=== PATIENT | male | born 1975 | race Caucasian/White ===

== ENCOUNTER 2017-08-07 20:40 | Inpatient (IN) | payer MEDICAID ==
--- NOTE | 2017-08-07 21:38 | ED Physician Chart ---
ED Chief Complaint/HPI - Patient Information Date Seen:: 08/07/17 Time Seen:: 21:00 Chief Complaint:: DISTENDED ABDOMEN History of Present Illness:: THIS IS A CHRONICALLY ILL CEREBRAL PALSY 42 YO WAS SENT FROM THE PRISON FOR AN EVALUATIO OF HIS DISTENDED ABDOMEN. HE HAS BEEN VOMITING INTERMITTENTLY. Allergies:: Allergies Allergy/AdvReac Type Severity Reaction Status Date / Time No Known Allergies Allergy Verified 08/07/17 21:20 Vitals:: Vital Signs - 8 hr 08/07/17 20:45 Temp 98.2 F HR 109 RR 20 BP 126/78 O2 Sat % 95 Historian:: Patient, Medical Records Review:: Nurse's Note Reviewed, Old Chart Reviewed, Transfer documents Reviewed ED Review of Systems - Review of Systems General/Constitutional: No fever, No chills, No weight loss, No weakness, No diaphoresis, No edema, No loss of appetite Skin: No skin lesions, No rash, No bruising Head: No headache, No light-headedness Eyes: No loss of vision, No pain, No diplopia ENT: No earache, No nasal drainage, No sore throat, No tinnitus Neck: No neck pain, No swelling, No thyromegaly, No stiffness, No mass noted Cardio Vascular: No chest pain, No palpitations, No PND, No orthopnea, No edema Pulmonary: No SOB, No cough, No sputum, No wheezing GI: Nausea, Vomiting, No diarrhea, Pain, No melena, No hematochezia, No constipation, No hematemesis G/U: No dysuria, No frequency, No hematuria Musculoskeletal: No bone or joint pain, No back pain, No muscle pain Endocrine: No polyuria, No polydipsia Psychiatric: No prior psych history, No depression, No anxiety, No suicidal ideation Hematopoietic: No bruising, No lymphadenopathy Allergic/Immuno: No urticaria, No angioedema Neurological: No syncope, No focal symptoms, No weakness, No paresthesia, No headache, No seizure, No dizziness, No confusion, No vertigo ED Past Medical History - Past Medical History Obtainable: Yes Past Medical History: PUD/GERD, Dementia Family History: None Social History: Non Smoker, No Alcohol, No Drug Use, Care Facility Surgical History: None Psychiatricy History: Schizophrenia Family Medical History - Family Member Mother History Unknown: Yes Ethnicity: Living Status: Hx Family Cancer: No Hx Family Coronary Artery Disease: No Hx Family Congestive Heart Failure: No Hx Family Hypertension: No Hx Family Stroke: No Hx Family Diabetes: Yes Hx Family Seizures: No Hx Family Dementia: No Hx Family AIDS: No Hx Family HIV: No Hx Family COPD: Yes (asthma) Hx Family Hepatitis: No Hx Family Psychiatric Problems: No Hx Family Tuberculosis: No ED Physical Exam - Physical Examination General/Constitutional: Awake, Well-developed, well-nourished, Alert, No distress, GCS 15, Non-toxic appearing, Ambulatory Head: Atraumatic Eyes: Lids, conjuctiva normal, PERRL, EOMI Skin: Nl inspection, No rash, No skin lesions, No ecchymosis, Well hydrated, No lymphadenopathy ENMT: External ears, nose nl, Nasal exam nl, Lips, teeth, gums nl Neck: Nontender, Full ROM w/o pain, No JVD, No nuchal rigidity, No bruit, No mass, No stridor Respiratory: Nl effort/Exclusion, Clear to Auscultation, No Wheeze/Rhonchi/Rales Cardio Vascular: RRR, No murmur, gallop, rubs, NL S1 S2 GI: No organomegaly, No hernia, Normal BS's, No mass/bruits, No McBurney tenderness Other GI comments:: THE ABDOMEN IS DISTENDED AND MINIMALLY TENDER : No CVA tenderness Extremities: No tenderness or effusion, Full ROM, normal strength in all extremities, No edema, Normal digits & nails Neuro/Psych: Alert/oriented, DTR's symmetric, Normal sensory exam, Normal motor strength, Judgement/insight normal, Mood normal, Normal gait, No focal deficits Other Neuro/Psych comments:: RESIDUAL PARALYSIS SECONDARY TO HIS CP CONDITION. Misc: normal gait, Normal back, No paraspinal tenderness ED Labs/Radiology/EKG Results - Lab Results Results: Abnormal Lab Results 08/07/17 08/07/17 08/07/17 21:29 21:29 21:29 WBC 10.2 D RBC 4.56 Hgb 13.3 Hct 40.1 D MCV 87.9 MCH 29.1 MCHC Differential 33.1 RDW 13.6 Plt Count 186 D MPV 8.1 Neutrophils % 55.6 Lymphocytes % 28.1 Monocytes % 11.4 H Eosinophils % 4.9 Basophils % 0.0 PT 10.6 INR 1.02 PTT (Actin FS) 27.3 Sodium 135 L Potassium 3.6 Chloride 105 Carbon Dioxide 22.7 Anion Gap 10.9 BUN 16 Creatinine 0.6 L Est GFR ( Amer) > 60.0 Est GFR (Non-Af Amer) > 60.0 BUN/Creatinine Ratio 26.7 Glucose 112 H Calcium 9.6 Total Bilirubin 0.4 AST 19 ALT 21 Alkaline Phosphatase 41 Troponin I Total Protein 8.3 Albumin 4.3 Globulin 4.0 Albumin/Globulin Ratio 1.1 Triglycerides 137 Cholesterol 108 LDL Cholesterol Direct 74 L HDL Cholesterol 30 TSH Urine Source Urine Color Urine Clarity Urine pH Ur Specific [place] Urine Protein Urine Glucose (UA) Urine Ketones Urine Blood Urine Nitrate Urine Bilirubin Urine Urobilinogen Ur Leukocyte Esterase Urine RBC Urine WBC Ur Epithelial Cells Urine Bacteria 08/07/17 08/07/17 08/07/17 21:29 21:29 22:30 WBC RBC Hgb Hct MCV MCH MCHC Differential RDW Plt Count MPV Neutrophils % Lymphocytes % Monocytes % Eosinophils % Basophils % PT INR PTT (Actin FS) Sodium Potassium Chloride Carbon Dioxide Anion Gap BUN Creatinine Est GFR ( Amer) Est GFR (Non-Af Amer) BUN/Creatinine Ratio Glucose Calcium Total Bilirubin AST ALT Alkaline Phosphatase Troponin I 0.02 Total Protein Albumin Globulin Albumin/Globulin Ratio Triglycerides Cholesterol LDL Cholesterol Direct HDL Cholesterol TSH 6.90 H Urine Source CLEAN C Urine Color YELLOW Urine Clarity HAZY Urine pH 6.0 Ur Specific [place] 1.020 Urine Protein TRACE Urine Glucose (UA) NEGATIVE Urine Ketones TRACE Urine Blood TRACE Urine Nitrate NEGATIVE Urine Bilirubin NEGATIVE Urine Urobilinogen 0.2 Ur Leukocyte Esterase MODERATE H Urine RBC 2-5 H Urine WBC 25-50 H Ur Epithelial Cells MODERATE Urine Bacteria MODERATE - Radiology Results Results: CT SCAN OF THE ABDOMEN = SEVERE FECAL IMPACTION. CHEST X-RAY = NAD ED Assessment - Assessment General Assessment: FECAL IMPACTION ED Septic Shock - . Is Septic Shock (SBP<90, OR Lactate>4 mmol\L) present?: No - <6hrs of presentation: Vital Signs: Vital Signs - 8 hr 08/07/17 20:45 Temp 98.2 F HR 109 RR 20 BP 126/78 O2 Sat % 95 ED Reassessment (Disposition) - Reassessment Reassessment Condition:: Improved - Diagnosis Diagnosis:: FECAL IMPACTION URNARY TRACT INFECTION - Patient Disposition Discharge/Transfer:: Acute Care w/in this hosp Admitting Medical Physician:: Frank Holbrook
[2017-08-07 21:39] LABS: % EOSINOPHILS 4.9 % (0.0-5.0); % LYMPHOCYTES 28.1 % (20.0-50.0); % MONOCYTES 11.4 % (2.0-10.0); % NEUTROPHILS 55.6 % (40.0-80.0); HEMOGLOBIN 13.3 gm/dL (13.2-17.3); MEAN CELL VOLUME 87.9 fl (80-99); MEAN CORPUSCULAR HEMOGLOBIN 29.1 pg (26.0-30.0); MEAN CORPUSCULAR HGB CONC 33.1 pg (28.0-36.0); MEAN PLATELET VOLUME 8.1 fl; NEUTROPHILE ABSOLUTE 5.6 Th/cmm (1.8-8.0); RED BLOOD COUNT 4.56 Mil/cmm (4.30-5.70); RED CELL DISTRIBUTION WIDTH 13.6 % (11.5-20.0)
[2017-08-07 21:40] LABS: HEMATOCRIT 40.1 % (39.0-49.0); PLATELET COUNT 186 Th/cmm (150-400); WHITE BLOOD COUNT 10.2 Th/cmm (4.8-10.8)
[2017-08-07 21:54] LABS: INR 1.02 (0.5-1.4); PROTHROMBIN TIME (TEST) 10.6 SECONDS (9.5-11.5)
[2017-08-07 22:00] LABS: ALB/GLOB RATIO 1.1 (1.0-1.8); ALKALINE PHOSPHATASE 41 U/L (34-104); ANION GAP 10.9 (7.0-16.0); BILIRUBIN,TOTAL 0.4 mg/dL (0.3-1.0); BUN - UREA NITROGEN 16 mg/dL (7-25); BUN/CREATININE RATIO 26.7; CALCIUM SERUM 9.6 mg/dL (8.6-10.3); CARBON DIOXIDE 22.7 mEq/L (21.0-31.0); CHLORIDE 105 mEq/L (98-107); CHOLESTEROL 108 mg/dL (<200); CREATININE - SERUM 0.6 mg/dL (0.7-1.3); GLUCOSE 112 mg/dL (70-105); POTASSIUM SERUM 3.6 mEq/L (3.5-5.1); SGOT 19 U/L (13-39); SGPT/ALT 21 U/L (7-52); SODIUM SERUM 135 mEq/L (136-145); TRIGLYCERIDES 137 mg/dL (<150)
[2017-08-07 23:12] LABS: URINE BILIRUBIN NEGATIVE (NEGATIVE); URINE BLOOD TRACE (NEGATIVE); URINE GLUCOSE (UA) NEGATIVE (NEGATIVE); URINE KETONE TRACE mg/dL (NEGATIVE); URINE PROTEIN TRACE mg/dL (NEGATIVE); URINE UROBILINOGEN 0.2 E.U./dL (0.2 - 1.0)
[2017-08-07 23:14] LABS: URINE COLOR YELLOW
[2017-08-07 23:22] LABS: URINE BACTERIA MODERATE /hpf (NONE SEEN); URINE EPITHELIAL CELLS MODERATE /lpf (FEW); URINE WBC 25-50 /hpf (0-5)
[2017-08-08] MEDS ORDERED: Magnesium Hydroxide (MOM) 30 mL UDC PO PRN (01:48)
[2017-08-08] MEDS: D5-0.45NS 1,000 ML IV SCH ×2 (02:35→16:13)
[2017-08-08 05:30] VITALS: BP 96/72
[2017-08-08 05:43] LABS: % BASOPHILS 0.2 % (0.0-2.0); % EOSINOPHILS 6.3 % (0.0-5.0); % LYMPHOCYTES 32.3 % (20.0-50.0); % MONOCYTES 14.6 % (2.0-10.0); % NEUTROPHILS 46.6 % (40.0-80.0); HEMOGLOBIN 11.9 gm/dL (13.2-17.3); MEAN CELL VOLUME 87.1 fl (80-99); MEAN CORPUSCULAR HEMOGLOBIN 29.3 pg (26.0-30.0); MEAN CORPUSCULAR HGB CONC 33.6 pg (28.0-36.0); MEAN PLATELET VOLUME 8.4 fl; NEUTROPHILE ABSOLUTE 3.9 Th/cmm (1.8-8.0); RED BLOOD COUNT 4.06 Mil/cmm (4.30-5.70); RED CELL DISTRIBUTION WIDTH 13.8 % (11.5-20.0); WHITE BLOOD COUNT 8.2 Th/cmm (4.8-10.8)
[2017-08-08 06:04] LABS: HEMATOCRIT 35.4 % (39.0-49.0); PLATELET COUNT 147 Th/cmm (150-400)
[2017-08-08 06:09] LABS: ALB/GLOB RATIO 1.1 (1.0-1.8); ALKALINE PHOSPHATASE 35 U/L (34-104); ANION GAP 7.1 (7.0-16.0); BILIRUBIN,TOTAL 0.4 mg/dL (0.3-1.0); BUN - UREA NITROGEN 16 mg/dL (7-25); CALCIUM SERUM 8.9 mg/dL (8.6-10.3); CARBON DIOXIDE 24.8 mEq/L (21.0-31.0); CHLORIDE 109 mEq/L (98-107); CREATININE - SERUM 0.5 mg/dL (0.7-1.3); GLUCOSE 108 mg/dL (70-105); MAGNESIUM 1.9 mg/dL (1.9-2.7); POTASSIUM SERUM 3.9 mEq/L (3.5-5.1); SGOT 15 U/L (13-39); SGPT/ALT 16 U/L (7-52); SODIUM SERUM 137 mEq/L (136-145)
--- NOTE | 2017-08-08 08:13 | Diagnostic Imaging Report ---
Exam: KUB HISTORY: Fecal impaction. Findings 2 views of the abdomen supine reviewed. The study demonstrates cecum impaction the rectum. Proximal distention of small and large bowel loops appreciated throughout. There is evidence for extensive degenerative changes of the hip joints bilaterally most likely chronic in nature. No abnormal masses or calcifications are noted IMPRESSION: Fecal impaction the rectum with proximal distention small bowel and large bowel loops, clinical correlation and follow-up examination is recommended. Chronic deformity of the hip joints bilaterally with dislocation.
--- NOTE | 2017-08-08 08:32 | Diagnostic Imaging Report ---
Exam: CT examination of the abdomen pelvis. HISTORY: Distended abdomen Total DLP equals 825 CTDI equals 16.9 Findings: Multiple contiguous thin section of the abdomen pelvis obtained from lower thorax to pubic symphysis without the administration of oral or intravenous material. No prior studies available for comparison. The study demonstrates a normal aeration of lung parenchyma the bases. The stomach significantly distended with food content. The visualized liver and spleen intact. The gallbladder is distended. Adrenal glands are normal. The pancreas is intact. The kidneys demonstrate no evidence of obstructive uropathy or nephrolithiasis. There is evidence for significant distention of small large bowel loops with a massive distention of the rectosigmoid junction and rectum with fecal impaction. The urinary bladder is distended with a uterine bladder diverticulum extending into the left inguinal canal which suggestive of inguinal hernia. Bony structures demonstrate no evidence for lytic or blastic changes there is evidence for degenerative changes of pelvis is a chronic dislocation of hip joints bilaterally. IMPRESSION: 1. Severe distention of stomach with foot content air fluid level Serial fecal impaction in the rectosigmoid junction and rectum. Proximal distention of small and large bowel loops with air and air-fluid levels Chronic deformity and dislocation of hip joints bilaterally.
--- NOTE | 2017-08-08 08:37 | Diagnostic Imaging Report ---
Exam: Portable upright examination of chest. HISTORY: Shortness of breath. Findings: Portable upright examination of chest at 2125 hours reviewed no prior studies available comparison. The study demonstrates the degenerative changes of the bony thorax with scoliotic convexity thoracic spine to the right. No acute pulmonic infiltrates or effusions are noted. The costophrenic angles are clear. Mild congestion cannot be excluded. + IMPRESSION: Questionable mild congestion, scoliotic convexity of thoracic spine to the right with deformity of the left chest wall.
[2017-08-08] MEDS: Lactulose 10 Gm/15 mL 30mL UDC PO SCH (10:38)
[2017-08-08] MEDS: Pantoprazole 40 mg EC Tab PO SCH (10:39)
[2017-08-08] MEDS ORDERED: Fleet Enema 135 mL RC ONE (12:00)
--- NOTE | 2017-08-08 20:34 | History & Physical ---
ADMIT DATE: 08/08/2017 CHIEF COMPLAINT: The patient came in because of abdominal distention. HISTORY OF PRESENT ILLNESS: This is a 42-year-old male with past medical history of cerebral palsy who came in because of abdominal distention. A few hours prior to admission, [facility] staff noted the patient to have progressive increase in abdominal girth. He has not had any bowel movement for the last few days. This was associated with nausea and vomiting and abdominal discomfort. Thus, he was brought to the Emergency Room. His temperature was 98.2 degrees with a white count of 10.2. CT scan of the abdomen revealed fecal impaction at rectosigmoid junction/rectum. KUB confirmed presence of fecal impaction. PAST MEDICAL HISTORY: 1. Cerebral palsy. 2. Schizophrenia. 3. History of abdominal distention. 4. Organic hallucinations. CURRENT MEDICATIONS: He is currently on bisacodyl, ceftriaxone, divalproex, lactulose, magnesium hydroxide, Zyprexa, oxybutynin, pantoprazole, and Quetiapine fumarate. ALLERGIES: No known drug allergies. SOCIAL AND FAMILY HISTORY: I was unable to obtain directly from the patient because of his decreased mental capacity. REVIEW OF SYSTEMS: Again, I was not able to decipher directly from the patient. However, based on transfer note GASTROINTESTINAL: He has had progressive increase in abdominal girth, no BM for the last few days, and he did have some abdominal discomfort along with nausea and vomiting. PHYSICAL EXAMINATION: GENERAL: The patient is awake, in mild distress. VITAL SIGNS: Blood pressure is 196/72, pulse 112, and temperature 97 degrees. SKIN: Good turgor, warm, no rash, no jaundice appreciated. HEENT: Head is normocephalic and atraumatic. Eyes: Extraocular muscles intact. Pupils are equal, round, and reactive to light and accommodates. Anicteric sclerae. [place] conjunctivae. Nose, midline nasal septum. Mouth, moist mucosa with adequate dentition. NECK: Supple. No adenopathy, no thyromegaly, and no bruits. Trachea palpated in the midline. CHEST AND CVS: S1, S2. No rub, murmur, nor gallop appreciated. Point of maximal impulse fifth intercostal space, left midclavicular line. No abdominal or femoral bruits appreciated. LUNGS: Equal expansion. No use of accessory muscles. No supraclavicular retractions, decreased breath sounds, clear to auscultation without any wheeze. ABDOMEN: Mildly distended, soft, diminished bowel sounds, but no guarding nor muscle rigidity appreciated. No tenderness on deep palpation. RECTAL: The patient refused. GENITOURINARY: Normal appearing male genitalia. MUSCULOSKELETAL: No effusions present in his joints, but unable to assess his range of motion. EXTREMITIES: He has upper extremity flexed at the elbow as well as at the wrist bilaterally. No evidence of any edema, cyanosis, nor clubbing of his lower extremities. He has a palpable femoral popliteal and dorsalis pedis pulses. NEUROLOGIC: The patient is alert, however, has difficulty following my neuro commands, so I was not able to pursue further my neuro exam. LABORATORY DATA: Did reveal white count 8.2, hemoglobin 11.9, hematocrit 35.4, platelets 147,000, sodium 137, potassium 3.9, chloride 109, bicarbonate 24, BUN 16, creatinine 0.5, glucose is 108, calcium , magnesium 1.9, albumin 3.6, and TSH is 6.9. IMPRESSION: 1. Abdominal distention secondary to fecal impaction. 2. Fecal impaction secondary to oxybutynin. 3. Cerebral palsy. 4. Schizophrenia. 5. Organic hallucinations. 6. Clinical hypothyroidism. 7. Uncomplicated urinary tract infection. PLAN: 1. Agree with Fleet enema. 2. Continue IV hydration. 3. Discontinue oxybutynin. 4. Continue Dulcolax, lactulose daily. 5. Continue Rocephin for possible urinary tract infection. 6. Follow up urine culture. JOB# [id number]
[2017-08-09] MEDS: D5-0.45NS 1,000 ML IV SCH ×2 (06:58→20:38)
[2017-08-09] MEDS: Lactulose 10 Gm/15 mL 30mL UDC PO SCH (08:34)
[2017-08-09] MEDS: Pantoprazole 40 mg EC Tab PO SCH (08:34)
--- NOTE | 2017-08-09 12:25 | Consultation ---
DATE OF CONSULTATION: 08/09/2017 REASON FOR CONSULT: Abdominal distention, stool impaction. HISTORY OF PRESENT ILLNESS: This is a 42-year-old male with past medical history significant for cerebral palsy who was brought in from his [facility] for increased abdominal distention with constipation. REVIEW OF SYSTEMS: Per reports, the patient had a bowel movement for 3 days prior to admission. The patient found to have distended abdomen. Imaging was consistent with fecal impaction. It is unclear if the patient has had any prior colonoscopy or endoscopy. PAST MEDICAL HISTORY: As per HPI. In addition, the patient has history of schizophrenia. MEDICATIONS: Please see medication reconciliation form. ALLERGIES: No known drug allergies. SOCIAL HISTORY: No recent tobacco, alcohol, or drugs. FAMILY HISTORY: Unable to obtain given the patient's mental status. REVIEW OF SYSTEMS: Unable to obtain given the patient's mental status. PHYSICAL EXAMINATION: VITAL SIGNS: Temperature 102, pulse ____, respirations 18, blood pressure 118/65, pulse ox 98%. GENERAL: The patient appears in no acute distress. CARDIOVASCULAR: Tachycardic. ABDOMEN: Distended. EXTREMITIES: Contracted. LABORATORY DATA: White count 8.2, hemoglobin 11.9, platelets are 147. Urine white blood cells 25-50 with moderate leukocyte esterase. ASSESSMENT AND PLAN: This is a 42-year-old male with cerebral palsy, schizophrenia with change in bowel habits with ____ constipation and abdominal distention and fecal impaction, likely in part related to underlying sepsis, urinary tract infection. We will give aggressive laxatives, starts mineral oil as well as enemas. We will try to obtain any records for prior colonoscopy if the patient has had prior colonoscopy. May consider this as well. Thank you for this consult and allowing me to participate in the care of this patient. JOB# [id number]
[2017-08-09] MEDS: Levofloxacin 500mg/100mL 500 MG/100 ML BAG IV SCH (15:07)
[2017-08-10] MEDS: Lactulose 10 Gm/15 mL 30mL UDC PO SCH (08:22)
[2017-08-10] MEDS: Pantoprazole 40 mg EC Tab PO SCH (08:22)
[2017-08-10] MEDS ORDERED: Fleet Enema 135 mL RC PRN (09:29)
[2017-08-10] MEDS: Gentamicin 0.3% Ophth Soln 5mL Bottle LEFT EYE SCH ×4 (12:51→21:02)
[2017-08-10] MEDS: Levofloxacin 500mg/100mL 500 MG/100 ML BAG IV SCH (15:19)
[2017-08-10] MEDS: D5-0.45NS 1,000 ML IV SCH (15:24)
[2017-08-10] MEDS ORDERED: Diatrizoate Meglumine/Diatri 30 mL Sol PO ONE (15:42)
[2017-08-10] MEDS ORDERED: Probiotic Screen MC PRN (17:52)
[2017-08-11 03:09] LABS: T3 FREE 2.4 pg/mL (2.0-4.4); T4 FREE 1.35 ng/dL (0.82-1.77)
[2017-08-11] MEDS: Gentamicin 0.3% Ophth Soln 5mL Bottle LEFT EYE SCH ×5 (06:19→21:28)
[2017-08-11] MEDS: D5-0.45NS 1,000 ML IV SCH ×2 (07:42→21:34)
--- NOTE | 2017-08-11 08:20 | Diagnostic Imaging Report ---
Small bowel follow-through procedure History: Pain rule out obstruction Comparison: CT abdomen and pelvis on 08/07/2017 Technique/procedure: Slitter Helper view demonstrates distended stomach and diffuse gas-distended loops of bowel. Oral contrast was administered to multiple fluoroscopic images were obtained. One hour images demonstrate no significant passage of contrast from stomach into the small bowel. Follow-up 4 hour images demonstrate contrast within primarily large bowel loops. Evaluation for focal lesions is limited on this exam. IMPRESSION: Delayed passage of contrast from the stomach into the small bowel. 4 hour images demonstrate transit of oral contrast throughout the large bowel. The findings are suggestive of a generalized ileus. A low grade partial small bowel obstruction process is considered less likely. Clinical correlation is needed.
[2017-08-11 09:51] LABS: % BASOPHILS 0.2 % (0.0-2.0); % EOSINOPHILS 6.2 % (0.0-5.0); % LYMPHOCYTES 31.2 % (20.0-50.0); % MONOCYTES 8.8 % (2.0-10.0); % NEUTROPHILS 53.6 % (40.0-80.0); HEMATOCRIT 36.2 % (39.0-49.0); HEMOGLOBIN 12.1 gm/dL (13.2-17.3); MEAN CELL VOLUME 87.3 fl (80-99); MEAN CORPUSCULAR HEMOGLOBIN 29.1 pg (26.0-30.0); MEAN CORPUSCULAR HGB CONC 33.3 pg (28.0-36.0); NEUTROPHILE ABSOLUTE 3.4 Th/cmm (1.8-8.0); PLATELET COUNT 159 Th/cmm (150-400); RED BLOOD COUNT 4.15 Mil/cmm (4.30-5.70); RED CELL DISTRIBUTION WIDTH 13.8 % (11.5-20.0)
[2017-08-11 09:53] LABS: WHITE BLOOD COUNT 6.2 Th/cmm (4.8-10.8)
[2017-08-11 10:12] LABS: ALKALINE PHOSPHATASE 34 U/L (34-104); ANION GAP 6.8 (7.0-16.0); BILIRUBIN,TOTAL 0.5 mg/dL (0.3-1.0); BUN - UREA NITROGEN 6 mg/dL (7-25); CALCIUM SERUM 9.3 mg/dL (8.6-10.3); CARBON DIOXIDE 25.8 mEq/L (21.0-31.0); CHLORIDE 110 mEq/L (98-107); CREATININE - SERUM 0.5 mg/dL (0.7-1.3); GLUCOSE 112 mg/dL (70-105); MAGNESIUM 2.1 mg/dL (1.9-2.7); POTASSIUM SERUM 3.6 mEq/L (3.5-5.1); SGOT 13 U/L (13-39); SGPT/ALT 13 U/L (7-52); SODIUM SERUM 139 mEq/L (136-145)
[2017-08-11] MEDS: Lactulose 10 Gm/15 mL 30mL UDC PO SCH (10:13)
[2017-08-11] MEDS: Lactobacillus Rhamnosus 10 Billion CFU Capsule PO SCH (10:13)
[2017-08-11] MEDS: Pantoprazole 40 mg EC Tab PO SCH (10:13)
[2017-08-11] MEDS: POLYETHYLENE GLYCOL 3350 17 GM PACK PO SCH (10:30)
--- NOTE | 2017-08-11 12:58 | GI Progress Note ---
Subjective - Review of Systems Service Date: 08/11/17 Events since last encounter: Pt responded to laxative therapy and has no further abd pain. BMx3 overnight Objective - Results Result Diagrams: 08/11/17 09:42 08/11/17 09:42 Recent Labs: Laboratory Last Values WBC 6.2 Th/cmm (4.8-10.8) D 08/11/17 09:42 RBC 4.15 Mil/cmm (4.30-5.70) L 08/11/17 09:42 Hgb 12.1 gm/dL (13.2-17.3) L 08/11/17 09:42 Hct 36.2 % (39.0-49.0) L 08/11/17 09:42 MCV 87.3 fl (80-99) 08/11/17 09:42 MCH 29.1 pg (26.0-30.0) 08/11/17 09:42 MCHC Differential 33.3 pg (28.0-36.0) 08/11/17 09:42 RDW 13.8 % (11.5-20.0) 08/11/17 09:42 Plt Count 159 Th/cmm (150-400) 08/11/17 09:42 MPV 8.0 fl 08/11/17 09:42 Neutrophils % 53.6 % (40.0-80.0) 08/11/17 09:42 Lymphocytes % 31.2 % (20.0-50.0) 08/11/17 09:42 Monocytes % 8.8 % (2.0-10.0) 08/11/17 09:42 Eosinophils % 6.2 % (0.0-5.0) H 08/11/17 09:42 Basophils % 0.2 % (0.0-2.0) 08/11/17 09:42 PT 10.6 SECONDS (9.5-11.5) 08/07/17 21:29 INR 1.02 (0.5-1.4) 08/07/17 21:29 PTT (Actin FS) 27.3 SECONDS (26.0-38.0) 08/07/17 21:29 Sodium 139 mEq/L (136-145) 08/11/17 09:42 Potassium 3.6 mEq/L (3.5-5.1) 08/11/17 09:42 Chloride 110 mEq/L (98-107) H 08/11/17 09:42 Carbon Dioxide 25.8 mEq/L (21.0-31.0) 08/11/17 09:42 Anion Gap 6.8 (7.0-16.0) L 08/11/17 09:42 BUN 6 mg/dL (7-25) L 08/11/17 09:42 Creatinine 0.5 mg/dL (0.7-1.3) L 08/11/17 09:42 Est GFR ( Amer) > 60.0 ml/min (>90) 08/11/17 09:42 Est GFR (Non-Af Amer) > 60.0 ml/min 08/11/17 09:42 BUN/Creatinine Ratio 12.0 08/11/17 09:42 Glucose 112 mg/dL (70-105) H 08/11/17 09:42 Calcium 9.3 mg/dL (8.6-10.3) 08/11/17 09:42 Magnesium 2.1 mg/dL (1.9-2.7) 08/11/17 09:42 Total Bilirubin 0.5 mg/dL (0.3-1.0) 08/11/17 09:42 AST 13 U/L (13-39) 08/11/17 09:42 ALT 13 U/L (7-52) 08/11/17 09:42 Alkaline Phosphatase 34 U/L (34-104) 08/11/17 09:42 Troponin I 0.02 ng/mL (0.01-0.05) 08/07/17 21:29 Total Protein 7.3 gm/dL (6.0-8.3) 08/11/17 09:42 Albumin 3.6 gm/dL (4.2-5.5) L 08/11/17 09:42 Globulin 3.7 gm/dL 08/11/17 09:42 Albumin/Globulin Ratio 1.0 (1.0-1.8) 08/11/17 09:42 Triglycerides 137 mg/dL (<150) 08/07/17 21:29 Cholesterol 108 mg/dL (<200) 08/07/17 21:29 LDL Cholesterol Direct 74 mg/dL (75-193) L 08/07/17 21:29 HDL Cholesterol 30 mg/dL (23-92) 08/07/17 21:29 Free T4 1.35 ng/dL (0.82-1.77) 08/09/17 06:02 Free T3 2.4 pg/mL (2.0-4.4) 08/09/17 06:02 TSH 1.51 uIU/ml (0.34-5.60) 08/09/17 06:02 Urine Source CLEAN C 08/07/17 22:30 Urine Color YELLOW 08/07/17 22:30 Urine Clarity HAZY (CLEAR) 08/07/17 22:30 Urine pH 6.0 (4.6 - 8.0) 08/07/17 22:30 Ur Specific [place] 1.020 (1.005-1.030) 08/07/17 22:30 Urine Protein TRACE mg/dL (NEGATIVE) 08/07/17 22:30 Urine Glucose (UA) NEGATIVE mg/dL (NEGATIVE) 08/07/17 22:30 Urine Ketones TRACE mg/dL (NEGATIVE) 08/07/17 22:30 Urine Blood TRACE (NEGATIVE) 08/07/17 22:30 Urine Nitrate NEGATIVE (NEGATIVE) 08/07/17 22:30 Urine Bilirubin NEGATIVE (NEGATIVE) 08/07/17 22:30 Urine Urobilinogen 0.2 E.U./dL (0.2 - 1.0) 08/07/17 22:30 Ur Leukocyte Esterase MODERATE (NEGATIVE) H 08/07/17 22:30 Urine RBC 2-5 /hpf (0-5) H 08/07/17 22:30 Urine WBC 25-50 /hpf (0-5) H 08/07/17 22:30 Ur Epithelial Cells MODERATE /lpf (FEW) 08/07/17 22:30 Urine Bacteria MODERATE /hpf (NONE SEEN) 08/07/17 22:30 RPR NONREACTIVE (NONREACTIVE) 08/07/17 21:29 - Physical Exam Vitals and I&O: Vital Signs Temp 97.9 F 08/11/17 08:00 Pulse 78 08/11/17 08:00 Resp 20 08/11/17 08:00 BP 122/70 08/11/17 08:00 Pulse Ox 98 08/11/17 08:00 Intake & Output 08/10/17 08/11/17 08/11/17 18:59 06:59 18:59 Intake Total 1000 1240 Balance 1000 1240 Weight (lbs) 77.791 kg Intake: Intake, IV Amount 1000 1000 D5-0.45NS 1,000 ml @ 75 1000 1000 mls/hr IV .[id number] [facility] Rx #:[id number] Oral 240 Other: # Voids 3 # Bowel Movements 2 Stool Characteristics Liquid Active Medications: Current Medications Acetaminophen (Tylenol) 650 mg PO Q4H PRN PRN Reason: Fever > 101 Stop: 10/07/17 23:28 Last Admin: 08/09/17 00:14 Dose: 650 mg Bisacodyl (Dulcolax 10 Mg Supp) 10 mg RC DAILY [facility] Stop: 10/07/17 08:59 Last Admin: 08/11/17 10:06 Dose: 10 mg Divalproex Sodium (Depakote Er) 750 mg PO 1700 ENRIQUE PRN Reason: Protocol Stop: 10/07/17 16:59 Last Admin: 08/10/17 18:17 Dose: 750 mg Docusate Sodium (Colace) 250 mg PO BID [facility] Stop: 10/09/17 09:29 Last Admin: 08/11/17 10:13 Dose: 250 mg Gentamicin Sulfate (Gentak 0.3% Oph Soln) 1 drop LEFT EYE 5XD [facility] Stop: 10/09/17 09:59 Last Admin: 08/11/17 10:28 Dose: 1 drop Dextrose/Sodium Chloride (D5-0.45ns) 1,000 mls @ 75 mls/hr IV .[id number] [facility] Stop: 10/07/17 01:47 Last Admin: 08/11/17 07:42 Dose: 75 mls/hr Levofloxacin (Levaquin Pb) 500 mg in 100 mls @ 100 mls/hr IV Q24HR [facility] Stop: 10/08/17 14:59 Last Admin: 08/10/17 15:19 Dose: 100 mls/hr Lactobacillus Rhamnosus (Culturelle) 1 each PO DAILY ENRIQUE Stop: 10/10/17 08:59 Last Admin: 08/11/17 10:13 Dose: Not Given Lactulose (Cephulac) 3.34 gm PO DAILY [facility] Stop: 10/07/17 08:59 Last Admin: 08/11/17 10:13 Dose: 3.34 gm Magnesium Hydroxide (Milk Of Magnesia) 30 ml PO HS PRN PRN Reason: Constipation Stop: 10/07/17 01:47 Miscellaneous (Probiotic Screen) 1 ea MC PRN PRN PRN Reason: PROTOCOL Stop: 10/09/17 17:51 Olanzapine (Zyprexa) 15 mg PO HS ENRIQUE PRN Reason: Protocol Stop: 10/07/17 20:59 Olanzapine (Zyprexa) 2.5 mg PO HS ENRIQUE PRN Reason: Protocol Stop: 10/07/17 20:59 Pantoprazole Sodium (Protonix) 40 mg PO DAILY ENRIQUE Stop: 10/07/17 08:59 Last Admin: 08/11/17 10:13 Dose: 40 mg Polyethylene Glycol (Miralax) 17 gm PO DAILY ENRIQUE Stop: 10/10/17 09:44 Last Admin: 08/11/17 10:30 Dose: 17 gm Quetiapine Fumarate (Seroquel) 50 mg PO HS ENRIQUE PRN Reason: Protocol Stop: 10/07/17 20:59 Last Admin: 08/10/17 20:59 Dose: 50 mg Quetiapine Fumarate (Seroquel) 25 mg PO BID ENRIQUE PRN Reason: Protocol Stop: 10/07/17 08:59 Last Admin: 08/11/17 10:12 Dose: 25 mg Sodium Phosphate (Fleet Enema) 135 ml RC DAILY PRN PRN Reason: Constipation Stop: 10/09/17 09:28 Last Admin: 08/10/17 15:19 Dose: 135 ml General: Alert HEENT: Atraumatic, PERRLA, Mucous membr. moist/pink Abdomen: Soft (non tender, no rebound, no guard) Skin: no Rash, no Breakdown, no Significant lesion, no Other - Procedures Procedures: Procedures Procedure Code Date [place] [address] 08/15/13 IMMUNIZATION ADMIN 24535 08/15/13 INFLUENZA VACCINATION 99.52 08/15/13 VACCINATION NEC 99.55 08/15/13 VACCINE TOXOID 01350 08/15/13 Assessment/Plan - Problem List Patient Problems: All Active Problems Fever (Active) R50.9 - Assessment Assessment: # fecal impaction # Constipation Impaction now resolved with laxative therapy. Given the pt has had this change in bowel habits, he wishes to proceed with colonoscopy to ensure there is no mass lesion. Plan: - colonoscopy tomorrow in GI lab. 4L yoshi delgadillo - will need strong bowel regimen after colonoscopy to ensure impaction does not recurr
[2017-08-11] MEDS: Levofloxacin 500mg/100mL 500 MG/100 ML BAG IV SCH (15:16)
[2017-08-12] MEDS: Gentamicin 0.3% Ophth Soln 5mL Bottle LEFT EYE SCH ×5 (05:23→17:09)
[2017-08-12 05:25] LABS: % BASOPHILS 0.1 % (0.0-2.0); % EOSINOPHILS 2.4 % (0.0-5.0); % LYMPHOCYTES 30.4 % (20.0-50.0); % MONOCYTES 11.5 % (2.0-10.0); % NEUTROPHILS 55.6 % (40.0-80.0); HEMATOCRIT 34.7 % (39.0-49.0); HEMOGLOBIN 11.6 gm/dL (13.2-17.3); MEAN CELL VOLUME 87.6 fl (80-99); MEAN CORPUSCULAR HEMOGLOBIN 29.2 pg (26.0-30.0); MEAN CORPUSCULAR HGB CONC 33.3 pg (28.0-36.0); NEUTROPHILE ABSOLUTE 4.1 Th/cmm (1.8-8.0); PLATELET COUNT 180 Th/cmm (150-400); RED BLOOD COUNT 3.96 Mil/cmm (4.30-5.70); RED CELL DISTRIBUTION WIDTH 13.3 % (11.5-20.0); WHITE BLOOD COUNT 7.5 Th/cmm (4.8-10.8)
[2017-08-12 05:31] LABS: INR 1.1 (0.5-1.4); PROTHROMBIN TIME (TEST) 11.5 SECONDS (9.5-11.5)
[2017-08-12 06:27] LABS: ALB/GLOB RATIO 1.1 (1.0-1.8); ALKALINE PHOSPHATASE 34 U/L (34-104); ANION GAP 11.2 (7.0-16.0); BILIRUBIN,TOTAL 0.4 mg/dL (0.3-1.0); BUN - UREA NITROGEN 6 mg/dL (7-25); CALCIUM SERUM 9.2 mg/dL (8.6-10.3); CARBON DIOXIDE 24.5 mEq/L (21.0-31.0); CHLORIDE 109 mEq/L (98-107); CREATININE - SERUM 0.5 mg/dL (0.7-1.3); GLUCOSE 117 mg/dL (70-105); POTASSIUM SERUM 3.7 mEq/L (3.5-5.1); SGOT 14 U/L (13-39); SGPT/ALT 12 U/L (7-52); SODIUM SERUM 141 mEq/L (136-145)
[2017-08-12] MEDS: Lactobacillus Rhamnosus 10 Billion CFU Capsule PO SCH (09:25)
[2017-08-12] MEDS: Lactulose 10 Gm/15 mL 30mL UDC PO SCH (09:26)
[2017-08-12] MEDS: Pantoprazole 40 mg EC Tab PO SCH (09:26)
[2017-08-12] MEDS: POLYETHYLENE GLYCOL 3350 17 GM PACK PO SCH (09:26)
--- NOTE | 2017-08-12 11:57 | Operative Report ---
DATE OF SURGERY: 08/12/2017 ENDOSCOPIST: Bakari Farr M.D. PROCEDURE PERFORMED: Colonoscopy. PREOPERATIVE DIAGNOSIS: Fecal impaction and change of bowel habits. POSTOPERATIVE DIAGNOSIS: Normal colonoscopy. INDICATIONS: The patient is a 42-year-old male who has cerebral palsy who had presented with fecal impaction and a change in bowel habits that occurred over the past several weeks. The patient has never had a colonoscopy and thus colonoscopy was planned for this admission. CONSENT: Informed consent was obtained from the patient. The risks and benefits of this procedure were explained including but not limited to infection, bleeding, perforation, need for surgery, cardiopulmonary complications, missed pathology and . The patient indicated his understanding of these risks and wished to go forward with the procedure and signed the consent form. ANESTHESIA: General anesthesia was used under the care of anesthesiologist. PROCEDURE IN DETAIL: After administration of general anesthesia, the patient was placed in the left lateral position, a rectal exam was performed and was normal. Next, a well-lubricated scope was introduced into the rectum and guided under direct visualization to the level of the cecum. The scope was then carefully withdrawn, making sure to examine all areas of mucosa back towards the anus. The scope was completely retrieved after withdrawal from the anus and the patient tolerated the procedure well. FINDINGS: The [place] bowel prep score was 3 in the right colon, 3 in the mid colon, and 3 in the left colon. There were no polyps found on this exam and no other pathology found as well. The colon looked normal. There were small internal hemorrhoids on retroflexed view. IMPRESSION AND RECOMMENDATIONS: Given no polyps were found on this exam, next colonoscopy will be due in 10 years' time. Continue laxatives to prevent further impaction. Thank you for allowing me to participate in the care of this patient. Please call with any further questions. JOB# [id number]
--- NOTE | 2017-08-14 17:40 | Discharge Summary ---
DATE OF DISCHARGE: 08/12/2017 ADMITTING DIAGNOSES: 1. Abdominal distention/abdominal pain. 2. Fecal impaction. 3. Urinary tract infection. SECONDARY DIAGNOSES: Include: 1. History of cerebral palsy. 2. History of schizophrenia. 3. History of organic hallucinations. 4. Clinical hypothyroidism. 5. Neurogenic bladder. 6. Chronic constipation. DISCHARGE DIAGNOSES: 1. Abdominal distention, pain secondary to fecal impaction, resolved. 2. Urinary tract infection. CONSULTANTS: GI, Dr. Andrews's group. MAJOR PROCEDURES: There was an abdominal and pelvis CT done on 08/07/2017 showing severe distention of stomach with content of air fluid levels. Severe fecal impaction in the rectosigmoid junction and cecum, proximal distention of the small and large bowel loops with air and air fluid levels, chronic deformity and dislocation of hip joints bilaterally. KUB done on 08/08/2017 shows fecal impaction within the rectum with proximal distention of the small bowel and large bowel loops. Small bowel series on 08/10/2017 showing delayed passage of contrast from the stomach into the small bowel. Four hour images demonstrate transit of oral contrast throughout the large bowel. FINDINGS: The findings are suggestive of generalized ileus. A low-grade partial small bowel obstruction process is considered less likely and on 08/12/2017, he underwent a colonoscopy. There were no polyps found on this exam and no other pathology found as well. The colon looked normal. There were small internal hemorrhoids on the retroflexed view. BRIEF HOSPITAL COURSE: This is a 42-year-old gentleman with history of cerebral palsy, chronic constipation, who presented from half-way with abdominal distention and increase in abdominal girth. Apparently it began a few days prior to admission. He underwent a CT of the abdomen and pelvis with the above-mentioned results. He was admitted to the medical/surgical floor, made n.p.o. and received IV fluids and also was placed on laxatives, stool softeners and received multiple Fleet enemas. By hospital day #2, he had small bowel movements and by August 11, he had large bowel movements with improvement of his symptoms. On admission, his labs were significant for urinary tract infection for which he received IV Rocephin. On 08/11/2017, despite the multiple large BMs, his abdomen was still distended and he was agreeable to undergo a colonoscopy with the above-mentioned results. After the colonoscopy, his abdominal girth had improved. MEDICATIONS ON DISCHARGE: Include bisacodyl, valproic acid, lactulose, milk of magnesia, Zyprexa, oxybutynin, Protonix, and Fleet enemas. CONDITION ON DISCHARGE: Stable. DISPOSITION: The patient was discharged back to halfway facility. JOB# [id number]
== END 2017-08-12 17:56 | disposition home or self-care (01) | DRG 720 ==
LOC: ER 20:40 → MSI 08-08 01:15 → UNDODISIN 08-10 19:04
PROVIDERS: ADMIT Internal Medicine; ATTEND Internal Medicine
PROC: 0DJD8ZZ Inspection of Lower Intestinal Tract, Via Natural or Artificial Opening Endoscopic (ICD-10-PCS; principal; 2017-08-12)
DX: A41.9 Sepsis, unspecified organism (principal); F20.9 Schizophrenia, unspecified; G83.9 Paralytic syndrome, unspecified; F03.90 Unspecified dementia, unspecified severity, without behavioral disturbance, psychotic disturbance, mood disturbance, and anxiety; K56.41 Fecal impaction; N39.0 Urinary tract infection, site not specified; G80.9 Cerebral palsy, unspecified; E03.9 Hypothyroidism, unspecified; K21.9 Gastro-esophageal reflux disease without esophagitis; T44.3X5A Adverse effect of other parasympatholytics [anticholinergics and antimuscarinics] and spasmolytics, initial encounter; Y92.89 Other specified places as the place of occurrence of the external cause; Z83.3 Family history of diabetes mellitus; Z83.6 Family history of other diseases of the respiratory system
CPT/HCPCS: 36415-UA; 71010-TC; 74000-TC; 74250-TC; 80053-TC; 80061-TC; 81001-TC; 83735-TC; 84439-90; 84443-TC; 84479-90; 84484-TC; 85025-TC; 85610-TC; 85730-TC; 86592-TC; 87086-90; 93005; J0696; J1956; J2704; J7042; Z7508; Z7610

== ENCOUNTER 2018-03-11 10:12 | Inpatient (IN) | payer MEDICAID ==
--- NOTE | 2018-03-11 10:29 | ED Physician Chart ---
ED Chief Complaint/HPI - Patient Information Date Seen:: 03/11/18 Time Seen:: 10:10 Chief Complaint:: Fever History of Present Illness:: onset x 2 days of fever, cogh, and congestion; no report of ALOC, LOC, AMS, H/As , S/T, neck pain, C/P, SOB, Abd. Pain, A/N/V/D/C, chills, or urinary s/s Allergies:: Allergies Allergy/AdvReac Type Severity Reaction Status Date / Time No Known Allergies Allergy Verified 08/07/17 21:20 Vitals:: Vital Signs - 8 hr 03/11/18 10:14 Temp 98.1 F HR 67 RR 16 BP 135/82 O2 Sat % 96 Historian:: Patient, EMS Review:: Nurse's Note Reviewed, Old Chart Reviewed, EMS run form Reviewed ED Review of Systems - Review of Systems General/Constitutional: Fever, No chills, No weight loss, No weakness, No diaphoresis, No edema, No loss of appetite Skin: No skin lesions, No rash, No bruising Head: No headache, No light-headedness Eyes: No loss of vision, No pain, No diplopia ENT: No earache, Nasal drainage, No sore throat, No tinnitus Neck: No neck pain, No swelling, No thyromegaly, No stiffness, No mass noted Cardio Vascular: No chest pain, No palpitations, No PND, No orthopnea, No edema Pulmonary: No SOB, Cough, No sputum, No wheezing GI: No nausea, No vomiting, No diarrhea, No pain, No melena, No hematochezia, No constipation, No hematemesis G/U: No dysuria, No frequency, No hematuria, No nacturia Musculoskeletal: No bone or joint pain, No back pain, No muscle pain Endocrine: No polyuria, No polydipsia Psychiatric: Prior psych history, No depression, Anxiety, No suicidal ideation, No homicidal ideation, No auditory hallucination, No visual hallucination Hematopoietic: No bruising, No lymphadenopathy Allergic/Immuno: No urticaria, No angioedema Neurological: No syncope, No focal symptoms, No weakness, No paresthesia, No headache, No seizure, No dizziness, Confusion, No vertigo ED Past Medical History - Past Medical History Obtainable: Yes Past Medical History: CVA/TIA, Dyslipidemia, Seizures, Dementia, Other (CP) Family History: HTN Social History: Non Smoker, No Alcohol, No Drug Use, Single, Care Facility Surgical History: None Psychiatricy History: Schizophrenia, Dementia Medication: Reviewed Family Medical History - Family Member Aunt Ethnicity: Living Status: Hx Family Cancer: Yes (pancreatic cancer) Father Ethnicity: Living Status: Still Living Hx Family Diabetes: Yes Mother History Unknown: Yes Ethnicity: Living Status: Still Living Hx Family Cancer: No Hx Family Coronary Artery Disease: No Hx Family Congestive Heart Failure: No Hx Family Hypertension: No Hx Family Stroke: No Hx Family Diabetes: Yes Hx Family Seizures: No Hx Family Dementia: No Hx Family AIDS: No Hx Family HIV: No Hx Family COPD: Yes (asthma) Hx Family Hepatitis: No Hx Family Psychiatric Problems: No Hx Family Tuberculosis: No ED Physical Exam - Physical Examination General/Constitutional: Awake, Well-developed, well-nourished, Alert, No distress, GCS 15, Non-toxic appearing, Ambulatory Head: Atraumatic Eyes: Lids, conjuctiva normal, PERRL, EOMI Skin: Nl inspection, No rash, No skin lesions, No ecchymosis, Well hydrated, No lymphadenopathy ENMT: External ears, nose nl, TM canals nl, Nasal exam nl, Lips, teeth, gums nl , Oropharynx nl, Tonsils nl Neck: Nontender, Full ROM w/o pain, No JVD, No nuchal rigidity, No bruit, No mass, No stridor Respiratory: Nl effort/Exclusion Other Respiratory comments:: Lungs: + Rales and Rhonchi Cardio Vascular: RRR, No murmur, gallop, rubs, NL S1 S2, Carotid/Femoral/Distal pulses equal bilaterally GI: No tenderness/rebounding/guarding, No organomegaly, No hernia, Normal BS's, Nondistended, No mass/bruits, No McBurney tenderness : No CVA tenderness Extremities: No tenderness or effusion, Full ROM, normal strength in all extremities, No edema, Normal digits & nails Neuro/Psych: Alert/oriented, DTR's symmetric, Normal sensory exam, Normal motor strength, Judgement/insight normal, Mood normal, Normal gait, No focal deficits Misc: Normal back, No paraspinal tenderness ED Labs/Radiology/EKG Results - Lab Results Comments:: unremarkable - Radiology Results Comments:: CXR: + Patchy Infiltrate - EKG Interpretations EKG Time:: 10:23 Rate & Rhythm: 97; NSR Comments:: LAD; non-specific st-t changes ED Septic Shock - . Is Septic Shock (SBP<90, OR Lactate>4 mmol\L) present?: No - <6hrs of presentation: Vital Signs: Vital Signs - 8 hr 03/11/18 10:14 Temp 98.1 F HR 67 RR 16 BP 135/82 O2 Sat % 96 ED Reassessment (Disposition) - Reassessment Reassessment Condition:: Improved - Diagnosis Diagnosis:: Fever; Cough, PNA, Sepsis - Aftercare/Follow up Instructions Aftercare/Follow-Up Instructions:: Counseled pt regarding lab results/diagnosis & need follow up, Counseled pt & family regarding lab results/diagnosis & need follow up - Patient Disposition Discharge/Transfer:: Acute Care w/in this hosp Accepting Physician:: Dr. Holbrook Time Called:: 1200 Time Responded:: 12:00 Admitted to:: Med/Surg Spoke to:: Dr. Holbrook Admitting Medical Physician:: Dr. Holbrook Condition at Disposition:: Stable, Improved
[2018-03-11 10:48] LABS: % BASOPHILS 1.2 % (0.0-2.0); % EOSINOPHILS 2.4 % (0.0-5.0); % LYMPHOCYTES 17.7 % (20.0-50.0); % MONOCYTES 11.8 % (2.0-10.0); % NEUTROPHILS 66.9 % (40.0-80.0); BASOPHILE ABSOLUTE 0.1 Th/cumm (0-0.2); EOSINOPHILE ABSOLUTE 0.2 Th/cmm (0.1-0.4); HEMATOCRIT 36.5 % (41.0-60); LYMPHOCYTE ABSOLUTE 1.6 Th/cmm (1.5-3.0); MEAN CELL VOLUME 85.8 fl (80-99); MEAN CORPUSCULAR HEMOGLOBIN 28.1 pg (26.0-30.0); MEAN CORPUSCULAR HGB CONC 32.8 pg (28.0-36.0); MEAN PLATELET VOLUME 8.2 fl; MONOCYTE ABSOLUTE 1.1 Th/cmm (0.3-1.0); NEUTROPHILE ABSOLUTE 6.3 Th/cmm (1.8-8.0); PLATELET COUNT 179 Th/cmm (150-400); RED BLOOD COUNT 4.26 Mil/cmm (4.30-5.70); RED CELL DISTRIBUTION WIDTH 13.9 % (11.5-20.0); WHITE BLOOD COUNT 9.3 Th/cmm (4.8-10.8)
[2018-03-11 11:02] LABS: INR 1.08 (0.5-1.4); PROTHROMBIN TIME (TEST) 11.2 SECONDS (9.5-11.5)
[2018-03-11 11:07] LABS: ALB/GLOB RATIO 0.9 (1.0-1.8); ALBUMIN 3.6 gm/dL (4.2-5.5); ALKALINE PHOSPHATASE 44 U/L (34-104); ANION GAP 10.9 (7.0-16.0); BILIRUBIN,TOTAL 0.4 mg/dL (0.3-1.0); BUN - UREA NITROGEN 10 mg/dL (7-25); CALCIUM SERUM 8.9 mg/dL (8.6-10.3); CHLORIDE 108 mEq/L (98-107); CREATININE - SERUM 0.4 mg/dL (0.7-1.3); CREATININE KINASE 77 U/L (30-223); GFR AFRICAN-AMERICAN > 60.0 ml/min (>90); GFR NON AFRICAN-AMERICAN > 60.0 ml/min; GLUCOSE 84 mg/dL (70-105); POTASSIUM SERUM 3.9 mEq/L (3.5-5.1); SGOT 11 U/L (13-39); SGPT/ALT 11 U/L (7-52); SODIUM SERUM 138 mEq/L (136-145); TOTAL PROTEIN,SERUM 7.6 gm/dL (6.0-8.3)
[2018-03-11 11:11] LABS: TROP I < 0.01 ng/mL (0.01-0.05)
--- NOTE | 2018-03-11 11:17 | Diagnostic Imaging Report ---
Portable chest x-ray HISTORY: Pain The heart size is difficult to assess with portable technique in a very poor inspiration. Allowing for the poor inspiration, no acute focal pulmonary processes are seen. No hilar or mediastinal abnormalities. IMPRESSION: 1. No acute abnormalities
[2018-03-11] MEDS ORDERED: Levofloxacin 500mg/100mL 500 MG/100 ML BAG IV ONE (12:02)
[2018-03-11] MEDS ORDERED: Albuterol/Ipratropium Neb 3 ML AERS HHN PRN (14:38)
[2018-03-11 16:01] VITALS: BP 112/69
[2018-03-11] MEDS: cefTRIAXone 1 GM in Sodium Chloride 0.9% 50 ML IV SCH (16:41)
[2018-03-11] MEDS: Azithromycin 500 MG in Sodium Chloride 0.9% 250 ML IV SCH (17:18)
[2018-03-12 05:53] LABS: % BASOPHILS 0.4 % (0.0-2.0); % EOSINOPHILS 3.9 % (0.0-5.0); % LYMPHOCYTES 29.4 % (20.0-50.0); % MONOCYTES 12.3 % (2.0-10.0); EOSINOPHILE ABSOLUTE 0.3 Th/cmm (0.1-0.4); HEMATOCRIT 36.8 % (41.0-60); HEMOGLOBIN 12.1 gm/dL (12-16); LYMPHOCYTE ABSOLUTE 2.5 Th/cmm (1.5-3.0); MEAN CORPUSCULAR HEMOGLOBIN 27.9 pg (26.0-30.0); MEAN CORPUSCULAR HGB CONC 32.9 pg (28.0-36.0); MEAN PLATELET VOLUME 9.3 fl; MONOCYTE ABSOLUTE 1.1 Th/cmm (0.3-1.0); NEUTROPHILE ABSOLUTE 4.7 Th/cmm (1.8-8.0); PLATELET COUNT 176 Th/cmm (150-400); RED BLOOD COUNT 4.33 Mil/cmm (4.30-5.70); RED CELL DISTRIBUTION WIDTH 13.8 % (11.5-20.0); WHITE BLOOD COUNT 8.6 Th/cmm (4.8-10.8)
[2018-03-12 06:08] LABS: ANION GAP 12.1 (7.0-16.0); BUN - UREA NITROGEN 11 mg/dL (7-25); CALCIUM SERUM 9.3 mg/dL (8.6-10.3); CHLORIDE 107 mEq/L (98-107); CREATININE - SERUM 0.5 mg/dL (0.7-1.3); GFR AFRICAN-AMERICAN > 60.0 ml/min (>90); GFR NON AFRICAN-AMERICAN > 60.0 ml/min; GLUCOSE 94 mg/dL (70-105); MAGNESIUM 2.2 mg/dL (1.9-2.7); POTASSIUM SERUM 4.1 mEq/L (3.5-5.1); SODIUM SERUM 137 mEq/L (136-145)
--- NOTE | 2018-03-12 08:32 | Diagnostic Imaging Report ---
Portable chest x-ray HISTORY: Pneumonia Compared with the prior exam of March 11, 2018, there is a very poor inspiration. Allowing for this factor and positioning, no focal pulmonary processes are seen. IMPRESSION: 1. No acute focal pulmonary processes
[2018-03-12] MEDS ORDERED: Magnesium Hydroxide (MOM) 30 mL UDC PO PRN (08:58)
[2018-03-12] MEDS ORDERED: Non-Formulary Item 1 EA (Oxybenzone/Padimate O [Sunscreen Spf8 Lotion] 120 ML) TP PRN (08:58)
[2018-03-12] MEDS ORDERED: Pantoprazole 40 mg EC Tab PO SCH (10:00)
[2018-03-12] MEDS: Multivitamin w/ Minerals Tab PO SCH (10:19)
[2018-03-12] MEDS ORDERED: Probiotic Screen MC PRN (10:52)
--- NOTE | 2018-03-12 11:22 | History & Physical ---
ADMIT DATE: 03/12/2018 CHIEF COMPLAINT: Fever, cough/congestion. HISTORY OF PRESENT ILLNESS: The patient is a 43-year-old very nice gentleman with history of cerebral palsy, organic schizophrenia, history of organic hallucinations, previous pneumonia, history of UTIs, who presented to the ER last night or yesterday complaining of 2-day history of cough, congestion, and apparently had 2 sets of temperatures that were around 99-100. He stated that he was feeling somewhat congested, but denies any phlegm production or any significant shortness of breath. He does complain of nasal stuffiness. Initial x-ray shows no acute abnormalities. The patient has been admitted to Med/Surg floor for further management and care. PAST MEDICAL HISTORY: As noted above. PAST SURGICAL HISTORY: None listed. FAMILY HISTORY: Likely noncontributory to this admission. SOCIAL HISTORY: No tobacco, ETOH, or illicit drug usage. He lives at [facility] under Dr. Pak's care. ALLERGIES: NKDA. OUTPATIENT MEDICATIONS: Tylenol 650 q.4 h. p.r.n. for fever, Dulcolax 10 mg b.i.d., Depakote ER 750 once a day, Nexium 20 mg Mondays, Wednesdays, and Fridays; milk of magnesia 30 mL q.72 hours as needed, multivitamins and minerals every day, olanzapine 2.5mg at bedtime, oxybutynin 5 mg b.i.d., Seroquel 25 b.i.d. and 50 at bedtime, thiamine 100 mg every day. REVIEW OF SYSTEMS: CONSTITUTIONAL: Low-grade fevers, denies any chills. CARDIOVASCULAR: Denies any chest pain, palpitations. PULMONARY: Cough, congested. No chest wall pain noted. GASTROINTESTINAL: No bowel habit changes. GENITOURINARY: No bladder habit changes. NEUROLOGIC: No changes in vision. Denies any headaches. PHYSICAL EXAMINATION: VITAL SIGNS: Temperature 97.8, pulse 94, respirations 18, BP 122/73, satting 94% on room air. GENERAL: He is a well-nourished developmentally delayed gentleman who is able to answer questions appropriately. He is currently awake, alert, and oriented x 2 actually. HEAD AND NECK: Normocephalic, atraumatic. Pupils reactive to light. Oropharynx is moist and clear. NECK: There is no JVD or LAD. CARDIAC: Regular rate and rhythm with distant sounds. LUNGS: Diminished at the bases, but otherwise are clear to auscultation bilaterally. ABDOMEN: Soft, supple, mildly distended with normoactive bowel sounds. LOWER EXTREMITIES: There is no edema. MUSCULOSKELETAL: All 4 extremities are contracted. NEUROLOGIC: Difficult to assess, but cranial nerves 2-12 appear to be within normal limits. LABORATORY DATA ON ADMISSION: CBC was essentially within normal limits. Chem-7 was within normal limits. Lactic acid 0.83. LFTs within normal limits. Troponin is negative. DIAGNOSTICS: X-ray, please refer to the HPI. IMPRESSION: 1. Fever, rule out sepsis, Ddx: possible lung infection. 2. Likely bronchitis versus early pneumonia. 3. History of cerebral palsy. 4. History of schizophrenia/organic hallucinations. 5. History of acid reflux disease. PLAN: The patient has been admitted to the medical floor for further management and care. He has been placed on Rocephin and Zithromax as well as pulmonary supportive care. He will be kept on his other medications as scheduled. I will monitor him for 24 hours and if he remains stable, he will be discharged home. JOB# [id number] [facility]
[2018-03-12] MEDS: Azithromycin 500 MG in Sodium Chloride 0.9% 250 ML IV SCH (14:06)
[2018-03-12] MEDS: cefTRIAXone 1 GM in Sodium Chloride 0.9% 50 ML IV SCH (15:15)
[2018-03-13 05:42] LABS: HEMOGLOBIN 11.7 gm/dL (12-16); MANUAL DIFF REQUIRED? YES
[2018-03-13 05:52] LABS: HEMATOCRIT 35.1 % (41.0-60); MEAN CELL VOLUME 85.8 fl (80-99); MEAN CORPUSCULAR HEMOGLOBIN 28.6 pg (26.0-30.0); MEAN CORPUSCULAR HGB CONC 33.4 pg (28.0-36.0); PLATELET COUNT 190 Th/cmm (150-400); RED BLOOD COUNT 4.09 Mil/cmm (4.30-5.70); WHITE BLOOD COUNT 6.9 Th/cmm (4.8-10.8)
[2018-03-13 05:53] LABS: ANION GAP 9.9 (7.0-16.0); BUN - UREA NITROGEN 15 mg/dL (7-25); CALCIUM SERUM 8.8 mg/dL (8.6-10.3); CARBON DIOXIDE 23.7 mEq/L (21.0-31.0); CHLORIDE 111 mEq/L (98-107); CREATININE - SERUM 0.5 mg/dL (0.7-1.3); GFR AFRICAN-AMERICAN > 60.0 ml/min (>90); GFR NON AFRICAN-AMERICAN > 60.0 ml/min; GLUCOSE 124 mg/dL (70-105); MAGNESIUM 2.2 mg/dL (1.9-2.7); POTASSIUM SERUM 3.6 mEq/L (3.5-5.1); SODIUM SERUM 141 mEq/L (136-145)
[2018-03-13 06:24] LABS: BAND NEUTROPHILE 2 % (0-10); BASOPHIL 0 % (0-3); EOSINOPHIL 8 % (0-5); LYMPHOCYTE 30 % (20-50); MONOCYTE 10 % (2-10); NEUTROPHILS 50 % (40-80); TOTAL CELLS COUNTED 100
[2018-03-13] MEDS: Multivitamin w/ Minerals Tab PO SCH (08:57)
[2018-03-13] MEDS ORDERED: Lactobacillus Rhamnosus GG 15 Billion CFU CAP.SPRINK PO SCH (09:00)
[2018-03-13] MEDS: cefTRIAXone 1 GM in Sodium Chloride 0.9% 50 ML IV SCH (13:29)
[2018-03-13] MEDS: Azithromycin 500 MG in Sodium Chloride 0.9% 250 ML IV SCH (15:44)
== END 2018-03-13 18:10 | DRG 139 ==
LOC: ER 10:12 → MSI 13:15
PROVIDERS: ADMIT Internal Medicine; ATTEND Internal Medicine
DX: J18.9 Pneumonia, unspecified organism (principal); G82.50 Quadriplegia, unspecified; F03.90 Unspecified dementia, unspecified severity, without behavioral disturbance, psychotic disturbance, mood disturbance, and anxiety; F20.9 Schizophrenia, unspecified; G80.9 Cerebral palsy, unspecified; E78.5 Hyperlipidemia, unspecified; K21.9 Gastro-esophageal reflux disease without esophagitis; J40 Bronchitis, not specified as acute or chronic; Z86.73 Personal history of transient ischemic attack (TIA), and cerebral infarction without residual deficits; Z82.49 Family history of ischemic heart disease and other diseases of the circulatory system; Z80.8 Family history of malignant neoplasm of other organs or systems; Z82.5 Family history of asthma and other chronic lower respiratory diseases
CPT/HCPCS: 36415-UA; 71045-TC; 80048-TC; 80053-TC; 82550-TC; 83605; 83735-TC; 84484-TC; 85007-TC; 85025-TC; 85027-TC; 85610-TC; 85730-TC; 93005; 94760; J0456; J0696; J1956; J7040; Z7610